=== PATIENT | male | born 1960 | race Caucasian/White ===

== ENCOUNTER 2020-12-30 17:21 | Emergency (ER) | payer BC ==
[2020-12-30] MEDS ORDERED: Diphtheria,Pertussis(Acell),Tetanus Vaccine 0.5 ML Syringe IM ONE (18:57)
--- NOTE | 2020-12-30 18:58 | EDM.PDOC ---
ED HPI GENERAL MEDICAL PROBLEM - General Chief Complaint: Laceration Stated Complaint: FISHHOOK LEFT PALM Time Seen by Provider: 12/30/20 18:38 Source of Information: Reports: Patient, RN Notes Reviewed History Limitations: Reports: No Limitations - History of Present Illness INITIAL COMMENTS - FREE TEXT/NARRATIVE: 60-year-old gentleman presents emergency department today with a fishhook to his left hand palmar surface no functional complaints - Related Data Allergies Allergy/AdvReac Type Severity Reaction Status Date / Time No Known Allergies Allergy Verified 12/30/20 18:33 Home Meds: Home Meds NK [No Known Home Meds] 12/30/20 [History] Past Medical History - Past Surgical History Head Surgeries/Procedures: Reports: None Dermatological Surgical History: Reports: None Social & Family History - Caffeine Use Caffeine Use: Reports: Coffee ED ROS GENERAL - Review of Systems Review Of Systems: See Below Skin: Reports: Wound ED EXAM, SKIN/RASH Exam: See Below Text/Narrative:: Examination left hand full range of motion of all digits radial pulses +2 there is a's fistula that has been cut off. The palmar surface after adequate anesthesia with lidocaine without epinephrine 1% the the fishhook is backed out with an 18-gauge needle Exam Limited By: No Limitations General Appearance: Alert, WD/WN, No Apparent Distress Course - Vital Signs Last Recorded V/S: Last Vital Signs Temp 98 F 12/30/20 18:35 Pulse 60 12/30/20 18:35 Resp 16 12/30/20 18:35 BP 138/75 12/30/20 18:35 Pulse Ox 99 12/30/20 18:35 - Orders/Labs/Meds Meds: Medications Discontinued Medications Generic Name Dose Route Start Last Admin Trade Name Alvaro PRN Reason Stop Dose Admin Lidocaine HCl 5 ml 12/30/20 18:39 Lidocaine 1% 5 Ml Sdv INJECT 12/30/20 18:40 ONETIME ONE Departure - Departure Time of Disposition: 18:57 Disposition: Home, Self-Care 01 Condition: Good Clinical Impression: Fishing hook foreign body Qualifiers: Encounter type: initial encounter Qualified Code(s): W45.8XXA - Other foreign body or object entering through skin, initial encounter - Discharge Information Referrals: PCP,None [Primary Care Provider] - Additional Instructions: Follow-up with primary care as needed Sepsis Event Note (ED) - Evaluation Sepsis Screening Result: No Definite Risk - Focused Exam Vital Signs: Vital Signs Temp Pulse Resp BP Pulse Ox 12/30/20 18:35 98 F 60 16 138/75 99 12/30/20 18:34 98 F 60 16 138/75 99 - Assessment/Plan Plan: Assessment Acuity = acute Site and laterality = fishhook left hand Etiology = trauma Manifestations = none Location of injury = Home Lab values = none Plan [ detail plan review] This note was dictated using [email or web address] voice recognition software please call with any questions on syntax or grammar.
== END 2020-12-30 19:07 | disposition home or self-care (01) ==
LOC: JP.ED 17:21
DX: S60.552A Superficial foreign body of left hand, initial encounter (principal); Z23 Encounter for immunization; W45.8XXA Other foreign body or object entering through skin, initial encounter
CPT/HCPCS: 90471; 90715; 99283